=== PATIENT | female | born 1995 | race American Indian/Alaskan Native ===

== ENCOUNTER 2018-09-07 23:20 | Emergency (ER) | payer SELFPAY ==
[2018-09-07 23:47] VITALS: BMI 29.1
[2018-09-07 23:49] VITALS: BP 124/71; RESP 18; O2SAT 100
[2018-09-08 00:48] LABS: SQUAMOUS EPITHIAL 1 /hpf (0-5); URINE BACTERIA RARE (<OCC)
[2018-09-08 00:49] LABS: HCG,QUALITATIVE URINE NEGATIVE (NEGATIVE)
[2018-09-08 00:50] LABS: URINE BILIRUBIN NEGATIVE (NEGATIVE); URINE CLARITY Clear (Clear); URINE COLOR YELLOW (YELLOW); URINE GLUCOSE (UA) NEGATIVE (Normal)
[2018-09-08 00:51] LABS: URINE BLOOD NEGATIVE (NEGATIVE); URINE LEUKOCYTE ESTERASE NEGATIVE Leu/uL (Negative); URINE PROTEIN NEGATIVE (NEGATIVE)
--- NOTE | 2018-09-08 01:10 | C.PDOC ---
History Of Present Illness 23 year old female presents with vaginal bleeding and suprapubic pain since yesterday. LMP was 08/11/18, she states she usually gets it after a 30 day cycle, does not believe this to be her period. Denies dysuria or hematuria. Reports being sexually active without protection. Time Seen by Provider: 09/08/18 00:04 Chief Complaint (Nursing): Abdominal Pain History Per: Patient History/Exam Limitations: no limitations Onset/Duration Of Symptoms: Other (Yesterday) Current Symptoms Are (Timing): Still Present Location Of Pain/Discomfort: Suprapubic Quality Of Discomfort: Unable To Describe Associated Symptoms: denies: Urinary Symptoms Exacerbating Factors: None Alleviating Factors: None Recent travel outside of the [place]: No Abnormal Vaginal Bleeding: Yes Last Menstral Period: 08/11/18 Past Medical History Reviewed: Historical Data, Nursing Documentation, Vital Signs Vital Signs: Last Vital Signs Temp 98.4 F 09/07/18 23:47 Pulse 79 09/07/18 23:47 Resp 18 09/07/18 23:47 BP 124/71 09/07/18 23:47 Pulse Ox 100 09/07/18 23:47 Family History: States: Unknown Family Hx - Social History Hx Alcohol Use: Yes Hx Substance Use: No - Immunization History Hx Tetanus Toxoid Vaccination: No Hx Influenza Vaccination: No Hx Pneumococcal Vaccination: No Review Of Systems Constitutional: Negative for: Fever, Chills Gastrointestinal: Positive for: Abdominal Pain. Negative for: Nausea, Vomiting Genitourinary: Positive for: Vaginal Bleeding. Negative for: Dysuria, Hematuria Physical Exam - Physical Exam Appears: Non-toxic Skin: Normal Color, Warm Head: Atraumatic, Normacephalic Eye(s): bilateral: Normal Inspection Oral Mucosa: Moist Gastrointestinal/Abdominal: Soft, No Tenderness Pelvic: Normal External Exam, Normal Bimanual Exam, Vaginal Bleeding (blood in vault), No Cervical Motion Tenderness, No Cervix Open, No Adnexal Tenderness, No Tender Uterus, Other (Deferred) Neurological/Psych: Oriented x3, Normal Speech Gait: Steady ED Course And Treatment - Laboratory Results Lab Results: Urine Color Yellow (YELLOW) 09/08/18 00:24 Urine Clarity Clear (Clear) 09/08/18 00:24 Urine pH 7.0 (5.0-8.0) 09/08/18 00:24 Ur Specific [place] 1.020 (1.003-1.030) 09/08/18 00:24 Urine Protein Negative mg/dL (NEGATIVE) 09/08/18 00:24 Urine Glucose (UA) Negative mg/dL (Normal) 09/08/18 00:24 Urine Ketones Negative mg/dL (NEGATIVE) 09/08/18 00:24 Urine Blood Negative (NEGATIVE) 09/08/18 00:24 Urine Nitrate Negative (NEGATIVE) 09/08/18 00:24 Urine Bilirubin Negative (NEGATIVE) 09/08/18 00:24 Urine Urobilinogen 2.0 mg/dL (0.2-1.0) H 09/08/18 00:24 Ur Leukocyte Esterase Negative Mirtha/uL (Negative) 09/08/18 00:24 Urine WBC (Auto) 11 /hpf (0-5) H 09/08/18 00:24 Urine RBC (Auto) 2 /hpf (0-3) 09/08/18 00:24 Ur Squamous Epith Cells 1 /hpf (0-5) 09/08/18 00:24 Urine Bacteria Rare (<OCC) 09/08/18 00:24 Urine HCG, Qual Negative (NEGATIVE) 09/08/18 00:24 Urine HCG, Qual Negative (NEGATIVE) 09/08/18 00:24 O2 Sat by Pulse Oximetry: 100 (Room air) Pulse Ox Interpretation: Normal Progress Note: UA ordered, results were negative. Patient is resting comfortably in no acute distress, vitals are stable, will discharge home with instructions to follow up with PMD. Disposition Counseled Patient/Family Regarding: Diagnosis, Need For Followup, Rx Given - Disposition Referrals: [facility] [Outside] [facility] [Outside] Disposition: HOME/ ROUTINE Disposition Time: 01:08 Condition: STABLE Additional Instructions: Please follow up with PMD Return to ER if worse Forms: [facility] (Yakut), General Discharge Instructions - Clinical Impression Clinical Impression: Vaginal bleeding - PA / TELECOM FIELD TECHNICIAN / Resident Statement MD/DO has reviewed & agrees with the documentation as recorded. - Scribe Statement The provider has reviewed the documentation as recorded by the Scribe Navneet Aguiar All medical record entries made by the Scribe were at my direction and personally dictated by me. I have reviewed the chart and agree that the record accurately reflects my personal performance of the history, physical exam, medical decision making, and the department course for this patient. I have also personally directed, reviewed, and agree with the discharge instructions and disposition.
[2018-09-08 01:33] VITALS: PULSE 71; TEMP 98.2
== END 2018-09-08 01:33 | disposition home or self-care (01) ==
LOC: C.ER 23:20
DX: N93.9 Abnormal uterine and vaginal bleeding, unspecified (principal)